=== PATIENT | female | born 1965 | race Caucasian/White ===

== ENCOUNTER 2018-04-03 13:32 | Inpatient (IN) | payer BC ==
[~2018-04-03] VITALS: Ht 162.6 cm; Wt 112.7 kg
[~2018-04-03 13:32] MED LIST: ASPIR 8181 M1 PO; CARBAMAZEPINE200 M1 PO; CARBAMAZEPINE300 MG PO; CARBATROL-ER300 MG PO; LEVOTHYROXINE150 MCG PO; NAPROSYN500 MG PO; PAROXETINE HCL20 MG PO; PAROXETINE HCL30 MG PO; PHENOBARBITAL64.8 MG PO
[2018-04-03 15:01] LABS: BASOPHIL (%) 0.3 % (0-1); EOSINOPHIL (%) 0 % (0-5); HEMATOCRIT 38.8 % (36.0-46.0); HEMOGLOBIN 13.2 G/DL (11.9-15.5); IMMATURE GRANULOCYTE (%) 0.5 % (0.0-0.7); LYMPHOCYTE (%) 17.7 % (15-42); LYMPHOCYTE COUNT 1.8 K/uL (1.0-2.8); MCH 30.6 PG (29.0-34.0); MCV 89.8 FL (83-99); MONOCYTE (%) 5.4 % (3-12); MONOCYTE COUNT 0.6 K/uL (0-0.8); NEUTROPHIL (%) 76.1 % (45-76); NEUTROPHIL COUNT 7.8 K/uL (1.8-6.4); PLATELET COUNT 245 K/uL (156-360); RBC DIS.WIDTH-CV 12.9 % (11.8-14.6); RBC DIS.WIDTH-SD 42.7 % (39-53); RED BLOOD COUNT 4.32 M/uL (3.80-5.20); WHITE BLOOD COUNT 10.3 K/uL (4.1-10.2)
[2018-04-03 15:09] LABS: CHLORIDE 106 mEq/L (99-109); POTASSIUM 4.5 mEq/L (3.7-5.4); SODIUM 140 mEq/L (136-147)
[2018-04-03 15:11] LABS: GLUCOSE 94 mg/dL (70-99)
[2018-04-03 15:15] LABS: CREATININE 0.8 mg/dL (0.6-1.3); GFR ESTIMATE (CALCULATED) > 59 mL/min/
[2018-04-03 15:16] LABS: UREA NITROGEN (BUN) 9 mg/dL (9-23)
[2018-04-03 15:44] LABS: CARBAMAZEPINE (TEGRETOL) 8.1 MCG/ML (4.0-12.0); PHENOBARBITAL 24.2 MCG/ML (15-40)
[2018-04-03] MEDS ORDERED: PHENOBARBITAL64.8 MG PO (20:40)
[2018-04-03] MEDS ORDERED: TEGRETOL200 MG PO ×2 (20:42→20:43)
[2018-04-03] MEDS ORDERED: PRISTIQ100 MG PO (20:43)
[2018-04-03] MEDS ORDERED: LIPITOR40 MG PO (20:46)
[2018-04-04 01:02] VITALS: BP 131/80
[2018-04-04 06:42] LABS: INTER. NORMALIZED RATIO 1.2
[2018-04-04 08:07] VITALS: BP 120/79
[2018-04-04 11:58] VITALS: BP 119/74
[2018-04-04 15:30] VITALS: BP 114/74
[2018-04-04 18:55] VITALS: BP 92/49
[2018-04-04 19:24] VITALS: BP 144/81
[2018-04-05] VITALS (7 sets, daily range): BP systolic 110–142; BP diastolic 60–95
[2018-04-05 06:32] LABS: BASOPHIL (%) 0.3 % (0-1); EOSINOPHIL (%) 0 % (0-5); HEMATOCRIT 37.9 % (36.0-46.0); HEMOGLOBIN 12.4 G/DL (11.9-15.5); IMMATURE GRANULOCYTE (%) 0.3 % (0.0-0.7); LYMPHOCYTE (%) 18.3 % (15-42); LYMPHOCYTE COUNT 1.1 K/uL (1.0-2.8); MCHC 32.7 G/DL (30.0-36.0); MCV 91.5 FL (83-99); MONOCYTE (%) 2.9 % (3-12); MONOCYTE COUNT 0.2 K/uL (0-0.8); NEUTROPHIL (%) 78.2 % (45-76); NEUTROPHIL COUNT 4.5 K/uL (1.8-6.4); PLATELET COUNT 224 K/uL (156-360); RBC DIS.WIDTH-CV 13.2 % (11.8-14.6); RBC DIS.WIDTH-SD 44.5 % (39-53); RED BLOOD COUNT 4.14 M/uL (3.80-5.20); WHITE BLOOD COUNT 5.8 K/uL (4.1-10.2)
[2018-04-06 04:51] VITALS: BP 113/68
[2018-04-06 08:21] VITALS: BP 129/79
[2018-04-06 11:44] VITALS: BP 117/65
[2018-04-06 15:20] VITALS: BP 115/72
[2018-04-06 19:58] VITALS: BP 123/58
[2018-04-06 23:50] VITALS: BP 116/73
[2018-04-07 04:51] VITALS: BP 116/81
[2018-04-07 08:29] VITALS: BP 149/74
[2018-04-07 11:35] VITALS: BP 113/79
[2018-04-07 15:28] VITALS: BP 126/72
[2018-04-07 20:15] VITALS: BP 158/86
[2018-04-08 00:07] VITALS: BP 122/76
[2018-04-08 03:50] VITALS: BP 111/70
[2018-04-08 07:35] VITALS: BP 139/81
[2018-04-08] MEDS ORDERED: MEDROL DOSEPAK4 MG PO (11:27)
[2018-04-08 11:53] VITALS: BP 124/83
== END 2018-04-08 14:42 | disposition home or self-care (01) | DRG 92 ==
LOC: EME 13:32 → 3EAST 21:50 → EDOF 21:50 → ENRESERV 21:55 → CANRESERV 21:55 → ENRESERV 22:27 → 3EAST 04-04 00:18 → EDOF 04-04 00:18 → 3EAST 04-08 14:42
PROVIDERS: Emergency Medicine; Hospitalist; Student in an Organized Health Care Education/Training Program
DX: T85.01XA Breakdown (mechanical) of ventricular intracranial (communicating) shunt, initial encounter (principal); G40.409 Other generalized epilepsy and epileptic syndromes, not intractable, without status epilepticus; E03.9 Hypothyroidism, unspecified; H53.8 Other visual disturbances; R42 Dizziness and giddiness; R20.0 Anesthesia of skin; G93.0 Cerebral cysts; R51 Headache; E66.9 Obesity, unspecified; Z68.41 Body mass index [BMI] 40.0-44.9, adult; R73.03 Prediabetes; K21.9 Gastro-esophageal reflux disease without esophagitis; K64.9 Unspecified hemorrhoids; F41.9 Anxiety disorder, unspecified; F32.9 Major depressive disorder, single episode, unspecified; Z87.891 Personal history of nicotine dependence; Z79.82 Long term (current) use of aspirin
CPT/HCPCS: 70250; 70450; 71045; 72020; 74018; 74176; 80048; 80156; 80184; 85025; 85610; 85730; 93005; 99281; 99285; J1100; J1644